=== PATIENT | female | born 1935 | race Two or more races ===

== ENCOUNTER → 2018-04-11 | Outpatient (CLI) | payer OTHER ==
[~2018-04-11] MED LIST: BRAIN MIGHT-DH1 EACH; MULTI VITAMIN1 EACH; TUSSI PRES-B L120 M1 PO; ZITHROMAX TRI-500 MG PO
== END | disposition home or self-care (01) ==
LOC: MAMO-SONO 11:02 → RAD 11:02
DX: Z12.31 Encounter for screening mammogram for malignant neoplasm of breast (principal); Z87.898 Personal history of other specified conditions; R31.21 Asymptomatic microscopic hematuria; I67.82 Cerebral ischemia; I70.0 Atherosclerosis of aorta; M81.8 Other osteoporosis without current pathological fracture; E78.4 Other hyperlipidemia; F41.1 Generalized anxiety disorder; N64.89 Other specified disorders of breast

== ENCOUNTER 2019-03-09 15:52 | Emergency (ER) | payer OTHER ==
[~2019-03-09] VITALS: Ht 157.5 cm; Wt 41.7 kg
[2019-03-09] MEDS ORDERED: SIMVASTATIN10 MG (16:05)
== END 2019-03-09 22:44 | disposition home or self-care (01) ==
LOC: ER 15:52
DX: S00.03XA Contusion of scalp, initial encounter (principal); R55 Syncope and collapse; D72.828 Other elevated white blood cell count; W18.09XA Striking against other object with subsequent fall, initial encounter; Y93.89 Activity, other specified; Y92.018 Other place in single-family (private) house as the place of occurrence of the external cause; Y99.8 Other external cause status

== ENCOUNTER 2019-05-01 10:51 | Outpatient (CLI) | payer OTHER ==
[~2019-05-01 10:51] MED LIST changes: +SIMVASTATIN10 MG
== END 2019-05-01 11:02 | disposition home or self-care (01) ==
LOC: MRI 10:51
DX: I63.30 Cerebral infarction due to thrombosis of unspecified cerebral artery (principal)
CPT/HCPCS: 70551